=== PATIENT | female | born 1960 | race Caucasian/White ===

== ENCOUNTER 2018-09-13 19:22 | Emergency (ER) | payer OTHER ==
[~2018-09-13] VITALS: Ht 170.2 cm; Wt 64.9 kg
[2018-09-13 19:40] VITALS: Ht 170.2 cm; Wt 64.9 kg
[2018-09-13 21:37] VITALS: BP 112/69
== END 2018-09-13 21:37 | disposition home or self-care (01) ==
LOC: ED 19:22
DX: L03.314 Cellulitis of groin (principal); F17.210 Nicotine dependence, cigarettes, uncomplicated; Z98.86 Personal history of breast implant removal
CPT/HCPCS: J0696; J1885

== ENCOUNTER 2018-09-17 12:15 | Inpatient (IN) | payer OTHER ==
[~2018-09-17] VITALS: Ht 170.2 cm; Wt 63.5 kg
[2018-09-17 12:26] VITALS: Ht 170.2 cm; Wt 63.5 kg
[2018-09-17] MEDS ORDERED: KEFLEX500 M1 PO (13:07)
[2018-09-17] MEDS ORDERED: BACTRIM DS1 TAB PO (13:07)
[2018-09-17] MEDS ORDERED: PRE20 PO (13:08)
[2018-09-17] MEDS ORDERED: PROBIOTIC1 EAC1 PO (13:08)
[2018-09-17] MEDS ORDERED: NORCO1 TA2 PO (13:08)
[2018-09-17 13:31] LABS: PLATELET COUNT 335 x10^3mcL (130-400); RED CELL DISTRIBUTION WIDTH 13.8 % (11.5-14.5)
[2018-09-17 13:49] LABS: CALCIUM 8.9 mg/dL (8.5-10.1); CARBON DIOXIDE 29.9 mmol/L (21-32); CHLORIDE SERUM 96 mmol/L (98-107); CREATININE SERUM 0.9 mg/dL (0.6-1.0); GFR1 > 60 mL/min; GLUCOSE SERUM 143 mg/dL (74-106); POTASSIUM SERUM 3.8 mmol/L (3.5-5.1); SODIUM SERUM 135 mmol/L (136-145)
[2018-09-17 13:54] LABS: ALKALINE PHOSPHATASE 95 U/L (46-116); ALT/SGPT 68 U/L (14-59); AST/SGOT 29 U/L (15-37); BILIRUBIN TOTAL 0.3 mg/dL (0.20-1.00); TOTAL PROTEIN, SERUM 7.2 g/dL (6.4-8.2)
[2018-09-17 13:56] LABS: ALBUMIN 3.3 g/dL (3.4-5.0)
[2018-09-17 14:35] LABS: BAND NEUTROPHIL 10 % (0-10); BASOPHIL 0 % (0-2); MONOCYTE 2 % (0-7); SEGMENTED NEUTROPHILS 76 % (37-75)
[2018-09-17 14:36] LABS: rbc morphology (normal/abnorm) NORMAL (NORMAL)
[2018-09-17 14:37] LABS: PLATELET MORPHOLOGY PLATELETS NORMAL
[2018-09-17 16:29] VITALS: BP 156/72
[2018-09-17 21:02] VITALS: BP 113/68
[2018-09-18 05:04] VITALS: BP 104/64
[2018-09-18 06:26] LABS: CALCIUM 8.4 mg/dL (8.5-10.1); CARBON DIOXIDE 25.3 mmol/L (21-32); CHLORIDE SERUM 100 mmol/L (98-107); CREATININE SERUM 0.8 mg/dL (0.6-1.0); GFR1 > 60 mL/min; GLUCOSE SERUM 92 mg/dL (74-106); MAGNESIUM 1.9 mg/dL (1.8-2.4); PHOSPHOROUS 3.8 mg/dL (2.5-4.9); POTASSIUM SERUM 3.9 mmol/L (3.5-5.1); SODIUM SERUM 136 mmol/L (136-145)
[2018-09-18 07:45] LABS: PLATELET COUNT 272 x10^3mcL (130-400); RED CELL DISTRIBUTION WIDTH 13.7 % (11.5-14.5)
[2018-09-18 08:38] VITALS: BP 108/75
[2018-09-18 11:11] LABS: BAND NEUTROPHIL 3 % (0-10); BASOPHIL 0 % (0-2); MONOCYTE 6 % (0-7); SEGMENTED NEUTROPHILS 65 % (37-75)
[2018-09-18 11:14] LABS: rbc morphology (normal/abnorm) NORMAL (NORMAL)
[2018-09-18 12:12] VITALS: BP 104/68
[2018-09-18 15:51] VITALS: BP 101/64
[2018-09-18 20:36] VITALS: BP 99/66
[2018-09-18 22:25] LABS: microscopic required? NO
[2018-09-18 22:31] LABS: UA SPECIFIC GRAVITY <=1.005 (1.005-1.035); urine erythrocyte NEGATIVE (NEGATIVE)
[2018-09-18 22:52] LABS: AMPHETAMINE QUAL UR NONE DETECTED (See below)
[2018-09-19 04:36] VITALS: BP 105/69
[2018-09-19 05:43] LABS: PLATELET COUNT 307 x10^3mcL (130-400); RED CELL DISTRIBUTION WIDTH 13.7 % (11.5-14.5)
[2018-09-19 06:17] LABS: CALCIUM 8.6 mg/dL (8.5-10.1); CARBON DIOXIDE 31.6 mmol/L (21-32); CHLORIDE SERUM 101 mmol/L (98-107); CREATININE SERUM 0.7 mg/dL (0.6-1.0); GFR1 > 60 mL/min; GLUCOSE SERUM 96 mg/dL (74-106); MAGNESIUM 1.9 mg/dL (1.8-2.4); PHOSPHOROUS 4.4 mg/dL (2.5-4.9); POTASSIUM SERUM 4.2 mmol/L (3.5-5.1); SODIUM SERUM 138 mmol/L (136-145)
[2018-09-19 08:39] VITALS: BP 96/60
[2018-09-19 11:42] VITALS: BP 104/71
[2018-09-19 11:46] LABS: BAND NEUTROPHIL 11 % (0-10); MONOCYTE 6 % (0-7); SEGMENTED NEUTROPHILS 61 % (37-75); rbc morphology (normal/abnorm) NORMAL (NORMAL)
[2018-09-19 11:47] LABS: PLATELET MORPHOLOGY PLATELETS NORMAL
[2018-09-19 16:02] VITALS: BP 111/71
[2018-09-19 20:12] VITALS: BP 112/73
[2018-09-20 05:31] VITALS: BP 112/84
[2018-09-20 07:02] LABS: PLATELET COUNT 340 x10^3mcL (130-400)
[2018-09-20 07:32] LABS: CALCIUM 8.8 mg/dL (8.5-10.1); CHLORIDE SERUM 100 mmol/L (98-107); CREATININE SERUM 0.7 mg/dL (0.6-1.0); GFR1 > 60 mL/min; GLUCOSE SERUM 103 mg/dL (74-106); POTASSIUM SERUM 4.5 mmol/L (3.5-5.1); SODIUM SERUM 137 mmol/L (136-145)
[2018-09-20 08:54] VITALS: BP 138/86
[2018-09-20 12:46] LABS: SEGMENTED NEUTROPHILS 58 % (37-75)
[2018-09-20 12:47] LABS: BAND NEUTROPHIL 14 % (0-10); METAMYELOCTE 1 % (0-2); MONOCYTE 5 % (0-7); MYELOCYTE 1 % (0-2); PLATELET MORPHOLOGY PLATELETS NORMAL; rbc morphology (normal/abnorm) NORMAL (NORMAL)
[2018-09-20 17:31] VITALS: BP 121/83
[2018-09-20 19:37] VITALS: BP 137/85
[2018-09-21 05:27] VITALS: BP 104/71
[2018-09-21 07:40] LABS: CALCIUM 9.5 mg/dL (8.5-10.1); CHLORIDE SERUM 99 mmol/L (98-107); CREATININE SERUM 0.7 mg/dL (0.6-1.0); GFR1 > 60 mL/min; GLUCOSE SERUM 101 mg/dL (74-106); POTASSIUM SERUM 3.9 mmol/L (3.5-5.1); SODIUM SERUM 138 mmol/L (136-145)
[2018-09-21 08:28] LABS: BASOPHIL % 0.4 % (0-2); PLATELET COUNT 357 x10^3mcL (130-400)
[2018-09-21 09:18] VITALS: BP 106/74
[2018-09-21 11:00] VITALS: BP 110/62
[2018-09-21 16:51] VITALS: BP 105/61
[2018-09-21 21:07] VITALS: BP 103/66
[2018-09-22 05:50] VITALS: BP 110/72
[2018-09-22 07:15] LABS: BASOPHIL % 0.2 % (0-2); PLATELET COUNT 361 x10^3mcL (130-400); RED CELL DISTRIBUTION WIDTH 13.9 % (11.5-14.5)
[2018-09-22 08:29] LABS: CALCIUM 8.8 mg/dL (8.5-10.1); CARBON DIOXIDE 28.9 mmol/L (21-32); CHLORIDE SERUM 99 mmol/L (98-107); CREATININE SERUM 0.8 mg/dL (0.6-1.0); GFR1 > 60 mL/min; GLUCOSE SERUM 87 mg/dL (74-106); SODIUM SERUM 135 mmol/L (136-145)
[2018-09-22 08:52] VITALS: BP 110/71
[2018-09-22 16:38] VITALS: BP 105/73
[2018-09-22 21:12] VITALS: BP 122/67
[2018-09-23 05:49] VITALS: BP 109/63
[2018-09-23 06:54] LABS: CALCIUM 8.6 mg/dL (8.5-10.1); CARBON DIOXIDE 32.3 mmol/L (21-32); CHLORIDE SERUM 99 mmol/L (98-107); CREATININE SERUM 0.8 mg/dL (0.6-1.0); GFR1 > 60 mL/min; GLUCOSE SERUM 95 mg/dL (74-106); POTASSIUM SERUM 3.9 mmol/L (3.5-5.1); SODIUM SERUM 135 mmol/L (136-145)
[2018-09-23 07:02] LABS: BASOPHIL % 0.5 % (0-2); PLATELET COUNT 335 x10^3mcL (130-400)
[2018-09-23 09:14] VITALS: BP 115/70
[2018-09-23 15:55] VITALS: BP 100/64
[2018-09-23 21:01] VITALS: BP 121/81
[2018-09-24 05:42] VITALS: BP 109/66
[2018-09-24 06:23] LABS: BASOPHIL % 0.5 % (0-2); PLATELET COUNT 343 x10^3mcL (130-400); RED CELL DISTRIBUTION WIDTH 13.4 % (11.5-14.5)
[2018-09-24 06:33] LABS: CARBON DIOXIDE 31.7 mmol/L (21-32); CHLORIDE SERUM 99 mmol/L (98-107); CREATININE SERUM 0.8 mg/dL (0.6-1.0); GFR1 > 60 mL/min; GLUCOSE SERUM 92 mg/dL (74-106); POTASSIUM SERUM 4.2 mmol/L (3.5-5.1); SODIUM SERUM 135 mmol/L (136-145)
[2018-09-24 08:18] VITALS: BP 91/70
[2018-09-24 10:23] VITALS: BP 136/76
[2018-09-24 16:21] VITALS: BP 94/61
[2018-09-24 20:32] VITALS: BP 97/59
[2018-09-25 05:19] VITALS: BP 89/61
[2018-09-25 06:30] LABS: BASOPHIL % 0.6 % (0-2); PLATELET COUNT 339 x10^3mcL (130-400); RED CELL DISTRIBUTION WIDTH 13.7 % (11.5-14.5)
[2018-09-25 06:56] LABS: CALCIUM 9.3 mg/dL (8.5-10.1); CARBON DIOXIDE 27.1 mmol/L (21-32); CHLORIDE SERUM 101 mmol/L (98-107); CREATININE SERUM 0.7 mg/dL (0.6-1.0); GFR1 > 60 mL/min; GLUCOSE SERUM 87 mg/dL (74-106); POTASSIUM SERUM 4.5 mmol/L (3.5-5.1); SODIUM SERUM 137 mmol/L (136-145)
[2018-09-25 09:55] VITALS: BP 95/60
[2018-09-25 14:40] VITALS: BP 95/60
[2018-09-25] MEDS ORDERED: DOXYCYCLINE HY100 M2 PO (14:41)
== END 2018-09-25 16:30 | disposition home or self-care (01) | DRG 746 ==
LOC: ED 12:15 → MU 14:28
PROVIDERS: Emergency Medicine; Family Medicine; ADMIT Internal Medicine
PROC: 0U9MXZZ Drainage of Vulva, External Approach (ICD-10-PCS; principal; 2018-09-17)
PROC: 0JB80ZZ Excision of Abdomen Subcutaneous Tissue and Fascia, Open Approach (ICD-10-PCS; 2018-09-21)
PROC: 0JBB0ZZ Excision of Perineum Subcutaneous Tissue and Fascia, Open Approach (ICD-10-PCS; 2018-09-21)
PROC: 0JD80ZZ Extraction of Abdomen Subcutaneous Tissue and Fascia, Open Approach (ICD-10-PCS; 2018-09-24)
PROC: 0JDB0ZZ Extraction of Perineum Subcutaneous Tissue and Fascia, Open Approach (ICD-10-PCS; 2018-09-24)
DX: N76.2 Acute vulvitis (principal); M72.6 Necrotizing fasciitis; E87.1 Hypo-osmolality and hyponatremia; E44.1 Mild protein-calorie malnutrition; E87.2 Acidosis; D64.9 Anemia, unspecified; F17.210 Nicotine dependence, cigarettes, uncomplicated; N76.4 Abscess of vulva; Z68.21 Body mass index [BMI] 21.0-21.9, adult; Z98.86 Personal history of breast implant removal; Z80.3 Family history of malignant neoplasm of breast; Z83.3 Family history of diabetes mellitus
CPT/HCPCS: J0690; J0692; J1170; J2001; J2175; J2250; J2270; J2405; J2543; J3010; J3370; J3490; J7030; J7050; Q0092